=== PATIENT | female | born 2000 | race Caucasian/White ===

== ENCOUNTER 2019-12-11 04:30 | Emergency (ER) | payer BC, MEDICAID ==
[~2019-12-11] VITALS: Ht 167.6 cm; Wt 68.2 kg
[2019-12-11] MEDS ORDERED: normal saline 1000ML IV soln IVB ONE (05:05)
[2019-12-11] MEDS ORDERED: ketorolac tromethamine 15mg/ml inj. IV ONE (05:05)
[2019-12-11] MEDS ORDERED: ondansetron/PF 4mg/2ml inj IV ONE (05:05)
[2019-12-11] MEDS ORDERED: ONDA8TAB6 PO (05:22)
[2019-12-11 05:49] LABS: BASOPHILS % (AUTO) 0.2 % (0-1); EOSINOPHILS % (AUTO) 0.3 % (0-6); HEMOGLOBIN 14.9 g/dl (12.0-16.0); LYMPHOCYTES # (AUTO) 2.1 X10'3 (1.1-4.8); LYMPHOCYTES % (AUTO) 47.7 % (21-51); MEAN CORPUSCULAR HGB CONC 34.6 g/dL (33.0-36.5); MEAN CORPUSCULAR VOLUME 83.8 FL (78-98); MONOCYTES # (AUTO) 0.3 X10'3 (0-0.9); MONOCYTES % (AUTO) 6.6 % (2-12); NEUTROPHILS % (AUTO) 45.2 % (42-75); PLATELET COUNT 204 X10'3 (140-440); RED BLOOD COUNT 5.13 X10'6 (4.20-5.60); RED CELL DISTRIBUTION WIDTH 12.8 % (11.5-14.5); WHITE BLOOD COUNT 4.5 X10'3 (4.5-11.0)
[2019-12-11 05:58] VITALS: BP 109/69
[2019-12-11 06:05] LABS: ALANINE AMINOTRANSFERASE 26 U/L (12-78); ALBUMIN 4.3 G/DL (3.4-5.0); ALBUMIN/GLOBULIN RATIO 1.1 (1.1-1.5); ALKALINE PHOSPHATASE 66 IU/L (20-180); ANION GAP 11 (8-16); ASPARTATE AMINO TRANSFERASE 26 U/L (10-37); BILIRUBIN,TOTAL 0.3 MG/DL (0.1-1.0); BLOOD UREA NITROGEN 11 MG/DL (7-18); BUN/CREATININE RATIO 13.1 (6.6-38.0); CALCIUM 10.3 MG/DL (8.5-10.1); CHLORIDE 103 MMOL/L (99-107); CREATININE 0.84 MG/DL (0.40-0.90); GLUCOSE 100 MG/DL (70-104); POTASSIUM 3.5 MMOL/L (3.5-5.1); SODIUM 142 MMOL/L (135-145); TOTAL CARBON DIOXIDE 28.3 MMOL/L (24-32); TOTAL PROTEIN 8.3 G/DL (6.4-8.2); eGFR 86 ML/MIN
== END 2019-12-11 06:13 | disposition home or self-care (01) ==
LOC: ER 04:30
DX: B34.9 Viral infection, unspecified (principal); R11.2 Nausea with vomiting, unspecified; R05 Cough; R50.9 Fever, unspecified; Z79.899 Other long term (current) drug therapy
CPT/HCPCS: 36415; 71045; 80053; 85025; 96374; 96375; 99284; J1885; J2405; J7030

== ENCOUNTER 2024-08-24 08:28 | Emergency (ER) | payer BC ==
[~2024-08-24] VITALS: Ht 167.6 cm; Wt 72.7 kg
[~2024-08-24 08:28] MED LIST: ONDA8TAB6 PO
[2024-08-24 08:33] VITALS: TEMP 98
[2024-08-24] MEDS ORDERED: NO HOME MEDS (08:51)
[2024-08-24] MEDS: HYDROmorphone 1 mg/ml syringe IV ONE (08:53)
[2024-08-24] MEDS: TETanus/Pertussis (Acell)/Diphther VAC/PF (Tdap-Adult) 0.5ml syringe IMVAC ONE (08:53)
[2024-08-24] MEDS: LIDOcaine 1% W/epiNEPHrine 1:100,000 20ml vial SQ ONE ×2 (10:30→11:38)
[2024-08-24] MEDS ORDERED: IBUP-1985 PO (11:03)
[2024-08-24] MEDS ORDERED: AMOX-580 PO (11:03)
[2024-08-24] MEDS ORDERED: HYDR-3965 PO ×2 (11:03→11:19)
[2024-08-24] MEDS: ondansetron 4mg rapidly disintigrating tab PO ONE (11:38)
[2024-08-24 11:48] VITALS: BP 136/86; PULSE 97; RESP 16; O2SAT 100
== END 2024-08-24 11:49 | disposition home or self-care (01) ==
LOC: ER 08:29
DX: S81.812A Laceration without foreign body, left lower leg, initial encounter (principal); Z79.899 Other long term (current) drug therapy; W54.0XXA Bitten by dog, initial encounter; Y93.89 Activity, other specified; Y92.89 Other specified places as the place of occurrence of the external cause; Y99.8 Other external cause status
CPT/HCPCS: 12006; 73590; 90471; 90715; 96374; 99284; A6223; J1171; J3490; A6446

== ENCOUNTER 2024-08-26 08:28 | Emergency (ER) | payer BC ==
[~2024-08-26] VITALS: Ht 172.7 cm; Wt 74.0 kg
[~2024-08-26 08:28] MED LIST changes: +AMOX-580 PO; +HYDR-3965 PO; +IBUP-1985 PO; +NO HOME MEDS
[2024-08-26 08:59] VITALS: BP 126/71; PULSE 100; RESP 16; TEMP 98.1; O2SAT 99
== END 2024-08-26 09:12 | disposition home or self-care (01) ==
LOC: ER 08:29
DX: S81.852D Open bite, left lower leg, subsequent encounter (principal); W54.0XXD Bitten by dog, subsequent encounter
CPT/HCPCS: 99281; A6446; A6449